=== PATIENT | female | born 1970 | race Caucasian/White ===

== ENCOUNTER 2016-12-13 15:26 | Emergency (ER) | payer MEDICAID ==
[2016-12-13 15:40] VITALS: BP 132/76
--- NOTE | 2016-12-13 15:40 | Emergency Department Report ---
Chief Complaint: Vaginal Bleeding Stated Complaint: 12WKS PREG/BLEEDING Time Seen by Provider: 12/13/16 15:36 - HPI History of Present Illness: PT states she is 12 weeks and she has had vaginal bleeding that started this am. - ROS Review of Systems: - abd pain + vaginal bleeding - Exam Physical Exam: PT looks well, non toxic. abd soft and non tender. MSE screening note: Focused history and physical exam performed. Due to findings the following was ordered: labs, us ED Disposition for MSE Condition: Stable
[2016-12-13 16:23] LABS: Alanine Aminotransferase 24 units/L (7-56); Albumin 4.3 g/dL (3.9-5); Albumin/Globulin Ratio 1.3 %; Alkaline Phosphatase 54 units/L (35-129); Anion Gap 17 mmol/L; BUN/Creatinine Ratio 13.33; Blood Urea Nitrogen 8 mg/dL (7-17); Calcium 9.3 mg/dL (8.4-10.2); Carbon Dioxide 27 mmol/L (22-30); Chloride 101.2 mmol/L (98-107); Glucose 94 mg/dL (65-100); Potassium 4.1 mmol/L (3.6-5.0); Sodium 141 mmol/L (137-145); Total Protein 7.5 g/dL (6.3-8.2)
[2016-12-13 16:26] LABS: Basophils % (Auto) 0.9 % (0.0-1.8); Eosinophils % (Auto) 3.3 % (0.0-4.3); Hematocrit 44.4 % (30.3-42.9); Hemoglobin 14.6 gm/dl (10.1-14.3); Mean Corpuscular HGB Conc 33 % (30-34); Mean Corpuscular Hemoglobin 29 pg (28-32); Mean Corpuscular Volume 86 fl (79-97); Platelet Count 243 K/mm3 (140-440); Red Blood Count 5.14 M/mm3 (3.65-5.03); Red Cell Distribution Width 14.7 % (13.2-15.2); White Blood Count 9.5 K/mm3 (4.5-11.0)
[2016-12-13 16:34] LABS: Bilirubin,Urine NEG (Negative); Blood,Urine LG (Negative); Ketones,Urine NEG (Negative); Leukocyte Esterase,Urine NEG (Negative); Mucus,Urine FEW /HPF; Nitrite,Urine NEG (Negative); Protein,Urine <15 mg/dL mg/dL (Negative); Urobilinogen,Urine < 2.0 mg/dL (<2.0); WBC,Urine < 1.0 /HPF (0.0-6.0)
--- NOTE | 2016-12-13 16:51 | Emergency Department Report ---
<LAUREL VALDIVIA - Last Filed: 12/13/16 16:52> ED Female HPI - General Chief complaint: OB/Uterine Contractions Stated complaint: 12WKS PREG/BLEEDING Time Seen by Provider: 12/13/16 15:36 Source: patient, family, warehouse order filler Mode of arrival: Ambulatory Limitations: Language Barrier - History of Present Illness Initial comments: Spar Machine Operator Helper PT states she is 12 weeks and she has had vaginal bleeding that started this am. She describes small amount of blood without any clots. She reports some pelvic pain comes and goes. It feels like cramping 09/10. She said she went to a clinic where they told her that she was 12 weeks based on her last menstrual cycle was history 09/23/2016. Denies any vaginal discharge or fever or chills. Denies any nausea or vomiting. She is not taking any vitamins at present. Denies Any urinary burning and frequency or urgency. MD Complaint: vaginal bleeding, pelvic pain -: This morning Location: other (pelvic) Radiation: non-radiating Severity: mild Severity scale (0 -10): 3 Quality: cramping Consistency: intermittent Improves with: none Worsens with: none Are you Now?: Yes Last Menstrual Period: 09/23/16 EDC: 06/30/17 Associated Symptoms: vaginal bleeding, abdominal pain. denies: vaginal discharge, nausea/vomiting, fever/chills, headaches, loss of appetite, dysuria, hematuria, rash, seizure, shortness of breath, syncope, weakness - Related Data Sexually active: Yes Previous Rx's Medication Instructions Recorded Last Taken Type Vit No.130/Iron/FA 1 each PO QAM #30 tablet 12/13/16 Unknown Rx [ Tablet] metroNIDAZOLE 0.75% [Vandazole 1 applicator VG QHS #1 tube 12/13/16 Unknown Rx 0.75% VAGINAL] Allergies Allergy/AdvReac Type Severity Reaction Status Date / Time No Known Allergies Allergy Verified 12/13/16 15:41 ED Review of Systems ROS: Stated complaint: 12WKS PREG/BLEEDING Other details as noted in HPI Comment: All other systems reviewed and negative Constitutional: denies: chills, fever Respiratory: no symptoms reported Cardiovascular: denies: chest pain, palpitations, edema, syncope Gastrointestinal: abdominal pain. denies: nausea, vomiting, diarrhea, constipation, hematemesis, melena, hematochezia Genitourinary: abnormal menses. denies: urgency, dysuria, frequency, hematuria , discharge Musculoskeletal: denies: back pain, arthralgia, myalgia Skin: denies: rash Neurological: denies: headache, weakness, numbness, paresthesias, confusion, abnormal gait, vertigo ED Past Medical Hx - Past Medical History Previous Medical History?: No - Surgical History Past Surgical History?: No - Family History Family history: no significant - Social History Smoking Status: Never Smoker Substance Use Type: None - Medications Home Medications: Home Medications Medication Instructions Recorded Confirmed Last Taken Type Vit No.130/Iron/FA 1 each PO QAM #30 tablet 12/13/16 Unknown Rx [ Tablet] metroNIDAZOLE 0.75% [Vandazole 1 applicator VG QHS #1 tube 12/13/16 Unknown Rx 0.75% VAGINAL] ED Physical Exam - General Limitations: Language Barrier General appearance: alert, in no apparent distress - Head Head exam: Present: atraumatic, normocephalic, normal inspection - Eye Eye exam: Present: normal appearance, PERRL, EOMI. Absent: scleral icterus, conjunctival injection, periorbital swelling, periorbital tenderness Pupils: Present: normal accommodation - ENT ENT exam: Present: normal exam, normal orophraynx, mucous membranes moist, TM's normal bilaterally, normal external ear exam - Neck Neck exam: Present: normal inspection, full ROM. Absent: tenderness, meningismus, lymphadenopathy - Respiratory Respiratory exam: Present: normal lung sounds bilaterally. Absent: respiratory distress, wheezes, rales, rhonchi, stridor, chest wall tenderness - Cardiovascular Cardiovascular Exam: Present: regular rate, normal rhythm, normal heart sounds - GI/Abdominal GI/Abdominal exam: Present: soft, normal bowel sounds. Absent: distended, tenderness, guarding, rebound, rigid - External exam: Present: normal external exam. Absent: erythema, swelling, lesions, lacerations, ecchymosis, bleeding Speculum exam: Present: vaginal bleeding. Absent: normal speculum exam, erythema, vaginal discharge, cervical discharge, foreign body, tissue, laceration Bi-manual exam: Present: normal bi-manual exam. Absent: cervical motion tendernes, adnexal tenderness, adnexal mass, uterine tenderness - Extremities Exam Extremities exam: Present: normal inspection, full ROM, normal capillary refill. Absent: tenderness, pedal edema, joint swelling, calf tenderness - Back Exam Back exam: Present: normal inspection, full ROM. Absent: tenderness, CVA tenderness (R), CVA tenderness (L), muscle spasm, paraspinal tenderness, vertebral tenderness, rash noted - Neurological Exam Neurological exam: Present: alert, oriented X3, normal gait, reflexes normal. Absent: motor sensory deficit - Psychiatric Psychiatric exam: Present: normal affect, normal mood - Skin Skin exam: Present: warm, dry, intact, normal color. Absent: rash ED Course Vital Signs 12/13/16 15:36 Temperature 98.4 F Pulse Rate 90 Respiratory 16 Rate Blood Pressure 132/76 O2 Sat by Pulse 99 Oximetry - Reevaluation(s) Reevaluation #1: 12/13/16 19:54 No changes in abdominal exam. Patient remained stable throughout ED course. Tolerated oral liquids. ED Medical Decision Making - Lab Data Result diagrams: 12/13/16 15:50 12/13/16 15:50 Lab Results 12/13/16 12/13/16 12/13/16 Range/Units 15:50 15:50 15:50 WBC 9.5 (4.5-11.0) K/mm3 RBC 5.14 H (3.65-5.03) M/mm3 Hgb 14.6 H (10.1-14.3) gm/dl Hct 44.4 H (30.3-42.9) % MCV 86 (79-97) fl MCH 29 (28-32) pg MCHC 33 (30-34) % RDW 14.7 (13.2-15.2) % Plt Count 243 (140-440) K/mm3 Lymph % (Auto) 25.1 (13.4-35.0) % [place] % (Auto) 6.1 (0.0-7.3) % Eos % (Auto) 3.3 (0.0-4.3) % Baso % (Auto) 0.9 (0.0-1.8) % Lymph # 2.4 (1.2-5.4) K/mm3 [place] # 0.6 (0.0-0.8) K/mm3 Eos # 0.3 (0.0-0.4) K/mm3 Baso # 0.1 (0.0-0.1) K/mm3 Seg Neutrophils % 64.6 (40.0-70.0) % Seg Neutrophils # 6.1 (1.8-7.7) K/mm3 Sodium 141 (137-145) mmol/L Potassium 4.1 (3.6-5.0) mmol/L Chloride 101.2 (98-107) mmol/L Carbon Dioxide 27 (22-30) mmol/L Anion Gap 17 mmol/L BUN 8 (7-17) mg/dL Creatinine 0.6 L (0.7-1.2) mg/dL Estimated GFR > 60 ml/min BUN/Creatinine Ratio 13.33 % Glucose 94 (65-100) mg/dL Calcium 9.3 (8.4-10.2) mg/dL Total Bilirubin 0.50 (0.1-1.2) mg/dL AST 16 (5-40) units/L ALT 24 (7-56) units/L Alkaline Phosphatase 54 (35-129) units/L Total Protein 7.5 (6.3-8.2) g/dL Albumin 4.3 (3.9-5) g/dL Albumin/Globulin Ratio 1.3 % HCG, Quant 1737 H (0-4) mIU/mL Urine Color (Yellow) Urine Turbidity (Clear) Urine pH (5.0-7.0) Ur Specific [place] (1.003-1.030) Urine Protein (Negative) mg/dL Urine Glucose (UA) (Negative) mg/dL Urine Ketones (Negative) mg/dL Urine Blood (Negative) Urine Nitrite (Negative) Urine Bilirubin (Negative) Urine Urobilinogen (<2.0) mg/dL Ur Leukocyte Esterase (Negative) Urine WBC (Auto) (0.0-6.0) /HPF Urine RBC (Auto) (0.0-6.0) /HPF U Epithel Cells (Auto) (0-13.0) /HPF Amorphous Crystals Urine Mucus /HPF Blood Type 12/13/16 12/13/16 Range/Units 15:50 15:56 WBC (4.5-11.0) K/mm3 RBC (3.65-5.03) M/mm3 Hgb (10.1-14.3) gm/dl Hct (30.3-42.9) % MCV (79-97) fl MCH (28-32) pg MCHC (30-34) % RDW (13.2-15.2) % Plt Count (140-440) K/mm3 Lymph % (Auto) (13.4-35.0) % [place] % (Auto) (0.0-7.3) % Eos % (Auto) (0.0-4.3) % Baso % (Auto) (0.0-1.8) % Lymph # (1.2-5.4) K/mm3 [place] # (0.0-0.8) K/mm3 Eos # (0.0-0.4) K/mm3 Baso # (0.0-0.1) K/mm3 Seg Neutrophils % (40.0-70.0) % Seg Neutrophils # (1.8-7.7) K/mm3 Sodium (137-145) mmol/L Potassium (3.6-5.0) mmol/L Chloride (98-107) mmol/L Carbon Dioxide (22-30) mmol/L Anion Gap mmol/L BUN (7-17) mg/dL Creatinine (0.7-1.2) mg/dL Estimated GFR ml/min BUN/Creatinine Ratio % Glucose (65-100) mg/dL Calcium (8.4-10.2) mg/dL Total Bilirubin (0.1-1.2) mg/dL AST (5-40) units/L ALT (7-56) units/L Alkaline Phosphatase (35-129) units/L Total Protein (6.3-8.2) g/dL Albumin (3.9-5) g/dL Albumin/Globulin Ratio % HCG, Quant (0-4) mIU/mL Urine Color Yellow (Yellow) Urine Turbidity Slightly-cloudy (Clear) Urine pH 6.0 (5.0-7.0) Ur Specific [place] 1.014 (1.003-1.030) Urine Protein <15 mg/dl (Negative) mg/dL Urine Glucose (UA) Neg (Negative) mg/dL Urine Ketones Neg (Negative) mg/dL Urine Blood Lg (Negative) Urine Nitrite Neg (Negative) Urine Bilirubin Neg (Negative) Urine Urobilinogen < 2.0 (<2.0) mg/dL Ur Leukocyte Esterase Neg (Negative) Urine WBC (Auto) < 1.0 (0.0-6.0) /HPF Urine RBC (Auto) 79.0 (0.0-6.0) /HPF U Epithel Cells (Auto) 2.0 (0-13.0) /HPF Amorphous Crystals Few Urine Mucus Few /HPF Blood Type A POSITIVE Less than 20% clue cells, no trichomonas and no yeast. Pending CHL - Radiology Data Radiology results: report reviewed Ultrasound less than 14 weeks revealed thickened irregular endometrium with a saclike structure. No pole or yolk sac identified. Continued follow-up recommended. Differential consideration includes blighted Ovum or very early intrauterine gestation. - Medical Decision Making Via Spar Machine Operator Helper ED course: Communicated with patient and family guardian ultrasound results and lab results. I explained to patient that she is having a threatened miscarriage and it is recommended that she return in 48 hours which is 2016 to the emergency room for follow-up blood work and ultrasound. She does understand interpreted and this she will return to the emergency room. As explained to patient that she needs to increase her fluid intake and her CBC with elevated hemoglobin and hematocrit she is dehydrated and patient that she does not drink a lot of fluids. She was able to tolerate fluids in emergency room without any vomiting. Patient discharged home with her family in stable condition with prescription for vitamins. She does not have an SINGLE SPINDLE SCREW MACHINE OPERATOR doctor. Critical care attestation.: If time is entered above; I have spent that time in minutes in the direct care of this critically ill patient, excluding procedure time. ED Disposition Clinical Impression: Threatened miscarriage in early , Pelvic pain during , Vaginal bleeding before 22 weeks gestation, BV (bacterial vaginosis) Disposition: DC-01 TO HOME OR SELFCARE Is pt being admited?: No Does the pt Need Aspirin: No Condition: Stable Instructions: Threatened Miscarriage (ED), Bacterial Vaginosis (ED), Abdominal Pain in (ED) Additional Instructions: Please return to the emergency room on 12/15/2016 for repeat blood work and ultrasound. This is drink plenty of fluids and take vitamin. All to schedule an appointment with SINGLE SPINDLE SCREW MACHINE OPERATOR in discharge instruction paperwork. Prescriptions: metroNIDAZOLE 0.75% [Vandazole 0.75% VAGINAL] 1 applicator VG QHS #1 tube Vit No.130/Iron/FA [ Tablet] 1 each PO QAM #30 tablet Referrals: JELLY SWAN MD [Staff Physician] - 12/14/16 ER, RETURN [Other] - 12/15/16 (Return to the emergency room in 48 hours to have repeat test and ultrasound.) Forms: Accompanied Note, STI Treatment and Prevention, Work/School Release Form (ED) Print Language: SYRIAC <WALTER DOMINGUEZ - Last Filed: 12/15/16 15:09> ED Medical Decision Making - Lab Data Result diagrams: 12/13/16 15:50 12/13/16 15:50
--- NOTE | 2016-12-13 18:18 | Ultrasound Report ---
FINAL REPORT EXAM: US OB TRANSVAGINAL HISTORY: bleeding TECHNIQUE: Ultrasound obstetrical transvaginal PRIORS: None. FINDINGS: The uterus measures 9.5 x 6.0 x 9.0 centimeters. Endometrium is thickened and heterogeneous. There is a saclike structure seen mid to lower uterus measuring 1.7 centimeters in diameter. No pole or yolk sac identified. No free fluid seen Right ovary is 2.1 x 1.4 x 1.1 centimeters. The left ovary is 2.9 x 1.5 x 2.3 centimeters No abnormal mass or cyst identified IMPRESSION: Thickened irregular endometrium with a saclike structure. No pole or yolk sac identified. Continued followup recommended. Differential consideration includes blighted ovum or very early intrauterine gestation.
--- NOTE | 2016-12-13 18:20 | Ultrasound Report ---
FINAL REPORT EXAM: US OB \T\lt; = 14 WEEKS FETUS HISTORY: bleeding TECHNIQUE: Ultrasound obstetrical transabdominal PRIORS: None. FINDINGS: There is central heterogeneity within the uterus with endometrial thickening. Small saclike structure seen without definitive pole or yolk sac. The ovaries demonstrate normal size and echogenicity No free-fluid or free air identified IMPRESSION: Thickened endometrium possible sac identified. No pole or yolk sac seen. Differential consideration includes blighted ovum versus very early gestation.
== END 2016-12-13 20:19 | disposition home or self-care (01) ==
LOC: ED 15:26
DX: O20.0 Threatened abortion (principal); R10.2 Pelvic and perineal pain; N76.0 Acute vaginitis; B96.89 Other specified bacterial agents as the cause of diseases classified elsewhere; Z3A.12 12 weeks gestation of pregnancy
CPT/HCPCS: 36415; 76801; 76817; 80053; 81001; 84702; 85025; 86900; 86901; 87210; 87591

== ENCOUNTER 2016-12-15 15:49 | Emergency (ER) | payer MEDICAID ==
[2016-12-15 16:58] LABS: Basophils % (Auto) 0.9 % (0.0-1.8); Eosinophils % (Auto) 4.6 % (0.0-4.3); Hematocrit 44.5 % (30.3-42.9); Hemoglobin 14.5 gm/dl (10.1-14.3); Mean Corpuscular HGB Conc 33 % (30-34); Mean Corpuscular Hemoglobin 29 pg (28-32); Mean Corpuscular Volume 88 fl (79-97); Platelet Count 245 K/mm3 (140-440); Red Blood Count 5.07 M/mm3 (3.65-5.03); Red Cell Distribution Width 14.7 % (13.2-15.2); White Blood Count 9.8 K/mm3 (4.5-11.0)
[2016-12-15 17:08] LABS: Bilirubin,Urine NEG (Negative); Blood,Urine LG (Negative); Ketones,Urine NEG (Negative); Leukocyte Esterase,Urine TR (Negative); Mucus,Urine 1+ /HPF; Nitrite,Urine NEG (Negative); RBC,Urine > 182.0 /HPF (0.0-6.0); Urobilinogen,Urine < 2.0 mg/dL (<2.0)
--- NOTE | 2016-12-15 18:44 | Ultrasound Report ---
FINAL REPORT EXAM: US OB \T\lt; = 14 WEEKS FETUS HISTORY: vaginal bleedign with high risk TECHNIQUE: Transabdominal and transvaginal sonography of the pelvis. PRIORS: 13 December 2016. FINDINGS: The uterus measures 13.1 x 6.0 x 7.5 cm and appears grossly unremarkable. Endometrial stripe heterogeneously thickened measuring 3.6 cm in AP dimension. Endometrium contains an irregular fluid collection, with mean sac diameter of 17.6 mm. No apparent yolk sac or pole identified. The right ovary measures 2.8 x 1.4 x 1.0 cm and is grossly unremarkable. The left ovary measures 2.4 x 1.4 x 2.7 cm and is grossly unremarkable. No adnexal masses, ring-like structures or significant free peritoneal fluid. IMPRESSION: 1. Nonspecific, intrauterine fluid collection, which should demonstrate yolk sac and pole by size criteria, though none is clearly identified. Possibilities include early failure, or ectopic . Correlation with serial beta-hCG levels and follow-up ultrasound may help in further evaluation.
[2016-12-16 00:03] VITALS: BP 112/72
--- NOTE | 2016-12-16 00:32 | Emergency Department Report ---
HPI - General Chief Complaint: Vaginal Bleeding Time Seen by Provider: 12/16/16 00:09 - [facility] HPI: Room 37 The patient is a 46-year-old female presenting with a chief complaint of vaginal bleeding. The patient states she was told she was 12 weeks of LP. 2 days ago the patient developed vaginal bleeding and came to the ED. The patient's pelvic ultrasound was not definitive she was advised to return to the ED in 48 hours for repeat ultrasound and labs. The patient states yesterday the vaginal bleeding lightened and today he had essentially stopped however while in the waiting room she developed spotting again. Patient denied having abdominal pain at any time. Patient denies passage of tissue. Location: Pelvis Duration: [see above] Quality: Painless Severity: Mild Modifying factors: [see above] Context: [see above] Mode of transportation: Unknown ED Past Medical Hx - Past Medical History Previous Medical History?: Yes - Surgical History Past Surgical History?: No Hx Cholecystectomy: Yes - Family History Family history: no significant - Social History Smoking Status: Never Smoker Substance Use Type: None - Medications Home Medications: Home Medications Medication Instructions Recorded Confirmed Last Taken Type Vit No.130/Iron/FA 1 each PO QAM #30 tablet 12/13/16 Unknown Rx [ Tablet] metroNIDAZOLE 0.75% [Vandazole 1 applicator VG QHS #1 tube 12/13/16 Unknown Rx 0.75% VAGINAL] ED Review of Systems ROS: Stated complaint: 12WKS/TOLD TO COME FOR ULTRSOUND Other details as noted in HPI Comment: All other systems reviewed and negative Constitutional: denies: chills, fever Eyes: denies: eye pain, eye discharge, vision change ENT: denies: ear pain, throat pain Respiratory: denies: cough, shortness of breath, wheezing Cardiovascular: denies: chest pain, palpitations Endocrine: no symptoms reported Gastrointestinal: denies: abdominal pain, nausea, diarrhea Genitourinary: abnormal menses Musculoskeletal: denies: back pain, joint swelling, arthralgia Skin: denies: rash, lesions Neurological: denies: headache, weakness, paresthesias Psychiatric: denies: anxiety, depression Hematological/Lymphatic: denies: easy bleeding, easy bruising Physical Exam - Physical Exam Vital Signs: Vital Signs 12/15/16 12/16/16 16:31 00:00 Temperature 97.8 F 98 F Pulse Rate 84 71 Respiratory 20 18 Rate Blood Pressure 126/78 Blood Pressure 112/72 [Left] O2 Sat by Pulse 98 97 Oximetry Physical Exam: GENERAL: The patient is well-developed well-nourished female lying on stretcher not appearing to be in acute distress. [] HEENT: Normocephalic. Atraumatic. Extraocular motions are intact. Patient has moist mucous membranes. NECK: Supple. Trachea midline CHEST/LUNGS: Clear to auscultation. There is no respiratory distress noted. HEART/CARDIOVASCULAR: Regular. There is no tachycardia. There is no gallop rub or murmur. ABDOMEN: Abdomen is soft, nontender. Patient has normal bowel sounds. There is no abdominal distention. SKIN: There is no rash. There is no edema. There is no diaphoresis. NEURO: The patient is awake, alert, and oriented. The patient is cooperative. The patient has normal speech MUSCULOSKELETAL:There is no evidence of acute injury. ED Course Vital Signs 12/15/16 12/16/16 16:31 00:00 Temperature 97.8 F 98 F Pulse Rate 84 71 Respiratory 20 18 Rate Blood Pressure 126/78 Blood Pressure 112/72 [Left] O2 Sat by Pulse 98 97 Oximetry ED Medical Decision Making - Lab Data Result diagrams: 12/15/16 16:44 Laboratory Tests 12/15/16 12/15/16 12/15/16 16:30 16:43 16:44 WBC 9.8 RBC 5.07 H Hgb 14.5 H Hct 44.5 H MCV 88 MCH 29 MCHC 33 RDW 14.7 Plt Count 245 Lymph % (Auto) 24.0 [place] % (Auto) 7.5 H Eos % (Auto) 4.6 H Baso % (Auto) 0.9 Lymph # 2.3 [place] # 0.7 Eos # 0.5 H Baso # 0.1 Seg Neutrophils % 63.0 Seg Neutrophils # 6.1 HCG, Quant Urine Color Yellow Urine Turbidity Slightly-cloudy Urine pH 5.0 Ur Specific [place] 1.020 Urine Protein 30 mg/dl Urine Glucose (UA) Neg Urine Ketones Neg Urine Blood Lg Urine Nitrite Neg Urine Bilirubin Neg Urine Urobilinogen < 2.0 Ur Leukocyte Esterase Tr Urine WBC (Auto) 1.0 Urine RBC (Auto) > 182.0 U Epithel Cells (Auto) 3.0 Urine Mucus 1+ Blood Type A POSITIVE Antibody Screen TNR [place] Antibody Screen Negative 12/15/16 16:44 WBC RBC Hgb Hct MCV MCH MCHC RDW Plt Count Lymph % (Auto) [place] % (Auto) Eos % (Auto) Baso % (Auto) Lymph # [place] # Eos # Baso # Seg Neutrophils % Seg Neutrophils # HCG, Quant 1229 H Urine Color Urine Turbidity Urine pH Ur Specific [place] Urine Protein Urine Glucose (UA) Urine Ketones Urine Blood Urine Nitrite Urine Bilirubin Urine Urobilinogen Ur Leukocyte Esterase Urine WBC (Auto) Urine RBC (Auto) U Epithel Cells (Auto) Urine Mucus Blood Type Antibody Screen [place] Antibody Screen - Radiology Data Radiology results: report reviewed (pelvic ultrasound), image reviewed (pelvic ultrasound) Pelvic ultrasound (read by radiologist)-nonspecific, intrauterine fluid collection, which should demonstrate yolk sac and pole by size criteria, though none is clearly identified. Possibilities include early failure, or ectopic . Correlation with serial beta hCG levels and follow-up ultrasound may help in further evaluation. - Medical Decision Making I discussed with patient and family at bedside (translation via family as patient speaks limited Portuguese). I verbalized my concern that the patient is having a spontaneous and/or blighted ovum given the downtrending hCG ( 12/13/2016 1737 to 1229 today), ultrasound findings and lack of abdominal pain. I explained however an ectopic in early cannot be 100% excluded and stress the need to follow-up with an SILK WASHING MACHINE OPERATOR. Patient and family verbalized understanding Critical care attestation.: If time is entered above; I have spent that time in minutes in the direct care of this critically ill patient, excluding procedure time. ED Disposition Clinical Impression: Threatened miscarriage in early Disposition: DC-01 TO HOME OR SELFCARE Is pt being admited?: No Does the pt Need Aspirin: No Condition: Stable Instructions: Threatened Miscarriage (ED), Spontaneous Miscarriage (ED) Additional Instructions: Return to the emergency department immediately should you develop worsening symptoms, fever, inability to tolerate food or liquid or any other concerns. Referrals: PRIMARY CARE, [Primary Care Provider] - 3-5 Days JELLY SWAN MD [Staff Physician] - [facility] (Dr. Swan is an SILK WASHING MACHINE OPERATOR. Please follow up with him for further evaluation) Time of Disposition: 00:36
== END 2016-12-16 00:44 | disposition home or self-care (01) ==
LOC: ED 15:49
DX: O20.0 Threatened abortion (principal); Z90.49 Acquired absence of other specified parts of digestive tract; Z3A.12 12 weeks gestation of pregnancy
CPT/HCPCS: 36415; 76801; 76817; 81001; 84702; 85025; 86850; 86900; 86901; 99284

== ENCOUNTER 2021-06-11 09:34 | Emergency (ER) | payer MEDICAID, OTHER ==
[2021-06-11 09:46] VITALS: BP 116/70
--- NOTE | 2021-06-11 10:22 | XRay Report ---
CHEST 2 VIEWS INDICATION / CLINICAL INFORMATION: chest pain. COMPARISON: None available. FINDINGS: SUPPORT DEVICES: None. HEART / MEDIASTINUM: No significant abnormality. LUNGS / PLEURA: No significant pulmonary or pleural abnormality. No pneumothorax. ADDITIONAL FINDINGS: No significant additional findings. IMPRESSION: 1. No acute findings. Signer Name: Mick Crowell DO Signed: 06/11/2021 10:17 AM Workstation Name: [id number]
[2021-06-11 11:59] LABS: Alanine Aminotransferase 56 units/L (7-56); Albumin 4.6 g/dL (3.9-5); Blood Urea Nitrogen 8 mg/dL (7-17); Calcium 9.3 mg/dL (8.4-10.2); Hemolysis Index 10
[2021-06-11 12:05] LABS: BUN/Creatinine Ratio 13
[2021-06-11 12:06] LABS: Bilirubin,Urine NEG (Negative); Blood,Urine MOD (Negative); Color,Urine Amber (Yellow); Mucus,Urine 3+ /HPF; Protein,Urine <15 mg/dL mg/dL (Negative)
[2021-06-11 12:15] LABS: Basophils # (Auto) 0.1 K/mm3 (0.0-0.1); Basophils % (Auto) 0.7 % (0.0-1.8); Eosinophils # (Auto) 0.3 K/mm3 (0.0-0.4); Eosinophils % (Auto) 2.1 % (0.0-4.3); Hematocrit 47.4 % (30.3-42.9); Hemoglobin 15.5 gm/dl (10.1-14.3); Lymphocytes % (Auto) 15.8 % (13.4-35.0); Mean Corpuscular HGB Conc 33 % (30-34); Mean Corpuscular Volume 92 fl (79-97); Monocytes # (Auto) 0.7 K/mm3 (0.0-0.8); Monocytes % (Auto) 5.9 % (0.0-7.3); Platelet Count 356 K/mm3 (140-440); Red Blood Count 5.15 M/mm3 (3.65-5.03); Red Cell Distribution Width 13.5 % (13.2-15.2)
--- NOTE | 2021-06-11 12:28 | Emergency Department Report ---
ED General Adult HPI - General Chief complaint: Chest Pain Stated complaint: CHEST PAIN Time Seen by Provider: 06/11/21 11:06 Source: patient Mode of arrival: Ambulatory Limitations: No Limitations - History of Present Illness Initial comments: Patient is a 50-year-old female presents emergency room with complaints of multiple complaints. She is complaining of left-sided chest pain, right arm tingling, one episode of vomiting, dysuria, lower abdominal discomfort. She states her symptoms have been ongoing for 3 days. She denies any fever, cough, shortness of breath, diaphoresis, leg swelling, calf pain, diarrhea, SI, HI. She states that she has been feeling very anxious lately and is having difficulty sleeping. She states that she has had increased stress in her life. She has a past medical history of depression and is on sertraline. She denies any recent travel or recent surgery or hormone use. She is a non-smoker. She denies any family cardiac history. - Related Data Previous Rx's Medication Instructions Recorded Last Taken Type Vit No.130/Iron/Folic 1 each PO QAM #30 tablet 12/13/16 Unknown Rx [ Tablet] metroNIDAZOLE 0.75% [Vandazole 1 applicator VG QHS #1 tube 12/13/16 Unknown Rx 0.75% VAGINAL] Doxycycline Hyclate [Doxycycline 100 mg PO BID 7 Days #14 tab 06/11/21 Unknown Rx Hyclate TAB] Ondansetron [Zofran Odt] 4 mg PO Q8HR PRN #10 tab.rapdis 06/11/21 Unknown Rx Phenazopyridine [Pyridium] 100 mg PO TID 2 Days #6 tab 06/11/21 Unknown Rx cephALEXin [Keflex] 500 mg PO BID 7 Days #14 cap 06/11/21 Unknown Rx hydrOXYzine HCL [Atarax] 25 mg PO Q6HR PRN #30 tablet 06/11/21 Unknown Rx Allergies Allergy/AdvReac Type Severity Reaction Status Date / Time No Known Allergies Allergy Verified 12/13/16 15:41 ED Review of Systems ROS: Stated complaint: CHEST PAIN Other details as noted in HPI Comment: All other systems reviewed and negative ED Past Medical Hx - Past Medical History Previous Medical History?: No - Surgical History Past Surgical History?: Yes Hx Cholecystectomy: Yes - Social History Smoking Status: Never Smoker Substance Use Type: None - Medications Home Medications: Home Medications Medication Instructions Recorded Confirmed Last Taken Type Vit No.130/Iron/Folic 1 each PO QAM #30 tablet 12/13/16 Unknown Rx [ Tablet] metroNIDAZOLE 0.75% [Vandazole 1 applicator VG QHS #1 tube 12/13/16 Unknown Rx 0.75% VAGINAL] Doxycycline Hyclate [Doxycycline 100 mg PO BID 7 Days #14 tab 06/11/21 Unknown Rx Hyclate TAB] Ondansetron [Zofran Odt] 4 mg PO Q8HR PRN #10 tab.rapdis 06/11/21 Unknown Rx Phenazopyridine [Pyridium] 100 mg PO TID 2 Days #6 tab 06/11/21 Unknown Rx cephALEXin [Keflex] 500 mg PO BID 7 Days #14 cap 06/11/21 Unknown Rx hydrOXYzine HCL [Atarax] 25 mg PO Q6HR PRN #30 tablet 06/11/21 Unknown Rx ED Physical Exam - General Limitations: No Limitations General appearance: alert, in no apparent distress - Head Head exam: Present: atraumatic, normocephalic - Eye Eye exam: Present: normal appearance - ENT ENT exam: Present: mucous membranes moist - Respiratory Respiratory exam: Present: normal lung sounds bilaterally. Absent: respiratory distress, wheezes, rales, rhonchi, stridor, chest wall tenderness, accessory muscle use, decreased breath sounds, prolonged expiratory - Cardiovascular Cardiovascular Exam: Present: regular rate, normal rhythm, normal heart sounds. Absent: systolic murmur, diastolic murmur, rubs, gallop - GI/Abdominal GI/Abdominal exam: Present: soft, normal bowel sounds. Absent: distended, tenderness, guarding, rebound, rigid - Neurological Exam Neurological exam: Present: alert, oriented X3 - Psychiatric Psychiatric exam: Present: normal affect, normal mood - Skin Skin exam: Present: warm, dry, intact ED Course Vital Signs 06/11/21 09:45 Temperature 98.3 F Pulse Rate 75 Respiratory 20 Rate Blood Pressure 116/70 O2 Sat by Pulse 96 Oximetry ED Medical Decision Making - Lab Data Result diagrams: 06/11/21 10:35 06/11/21 10:35 Lab Results 06/11/21 06/11/21 06/11/21 Range/Units 10:35 10:35 10:35 WBC 12.4 H (4.5-11.0) K/mm3 RBC 5.15 H (3.65-5.03) M/mm3 Hgb 15.5 H (10.1-14.3) gm/dl Hct 47.4 H (30.3-42.9) % MCV 92 (79-97) fl MCH 30 (28-32) pg MCHC 33 (30-34) % RDW 13.5 (13.2-15.2) % Plt Count 356 (140-440) K/mm3 Lymph % (Auto) 15.8 (13.4-35.0) % Riley % (Auto) 5.9 (0.0-7.3) % Eos % (Auto) 2.1 (0.0-4.3) % Baso % (Auto) 0.7 (0.0-1.8) % Lymph # (Auto) 2.0 (1.2-5.4) K/mm3 Riley # (Auto) 0.7 (0.0-0.8) K/mm3 Eos # (Auto) 0.3 (0.0-0.4) K/mm3 Baso # (Auto) 0.1 (0.0-0.1) K/mm3 Seg Neutrophils % 75.5 H (40.0-70.0) % Seg Neutrophils # 9.3 H (1.8-7.7) K/mm3 Sodium 139 (137-145) mmol/L Potassium 4.4 (3.6-5.0) mmol/L Chloride 101.4 (98-107) mmol/L Carbon Dioxide 22 (22-30) mmol/L Anion Gap 20 mmol/L BUN 8 (7-17) mg/dL Creatinine 0.6 (0.6-1.2) mg/dL Estimated GFR > 60 ml/min BUN/Creatinine Ratio 13 % Glucose 92 (65-100) mg/dL Calcium 9.3 (8.4-10.2) mg/dL Total Bilirubin 0.70 (0.1-1.2) mg/dL AST 28 (5-40) units/L ALT 56 (7-56) units/L Alkaline Phosphatase 89 (35-129) units/L Troponin T < 0.010 (0.00-0.029) ng/mL Total Protein 7.1 (6.3-8.2) g/dL Albumin 4.6 (3.9-5) g/dL Albumin/Globulin Ratio 1.8 % Lipase 29 (13-60) units/L Urine Color (Yellow) Urine Turbidity (Clear) Urine pH (5.0-7.0) Ur Specific [place] (1.003-1.030) Urine Protein (Negative) mg/dL Urine Glucose (UA) (Negative) mg/dL Urine Ketones (Negative) mg/dL Urine Blood (Negative) Urine Nitrite (Negative) Urine Bilirubin (Negative) Urine Urobilinogen (<2.0) mg/dL Ur Leukocyte Esterase (Negative) Urine WBC (Auto) (0.0-6.0) /HPF Urine RBC (Auto) (0.0-6.0) /HPF U Epithel Cells (Auto) (0-13.0) /HPF Urine Mucus /HPF 06/11/21 Range/Units Unknown WBC (4.5-11.0) K/mm3 RBC (3.65-5.03) M/mm3 Hgb (10.1-14.3) gm/dl Hct (30.3-42.9) % MCV (79-97) fl MCH (28-32) pg MCHC (30-34) % RDW (13.2-15.2) % Plt Count (140-440) K/mm3 Lymph % (Auto) (13.4-35.0) % Riley % (Auto) (0.0-7.3) % Eos % (Auto) (0.0-4.3) % Baso % (Auto) (0.0-1.8) % Lymph # (Auto) (1.2-5.4) K/mm3 Riley # (Auto) (0.0-0.8) K/mm3 Eos # (Auto) (0.0-0.4) K/mm3 Baso # (Auto) (0.0-0.1) K/mm3 Seg Neutrophils % (40.0-70.0) % Seg Neutrophils # (1.8-7.7) K/mm3 Sodium (137-145) mmol/L Potassium (3.6-5.0) mmol/L Chloride (98-107) mmol/L Carbon Dioxide (22-30) mmol/L Anion Gap mmol/L BUN (7-17) mg/dL Creatinine (0.6-1.2) mg/dL Estimated GFR ml/min BUN/Creatinine Ratio % Glucose (65-100) mg/dL Calcium (8.4-10.2) mg/dL Total Bilirubin (0.1-1.2) mg/dL AST (5-40) units/L ALT (7-56) units/L Alkaline Phosphatase (35-129) units/L Troponin T (0.00-0.029) ng/mL Total Protein (6.3-8.2) g/dL Albumin (3.9-5) g/dL Albumin/Globulin Ratio % Lipase (13-60) units/L Urine Color Vicky (Yellow) Urine Turbidity Clear (Clear) Urine pH 6.0 (5.0-7.0) Ur Specific [place] 1.018 (1.003-1.030) Urine Protein <15 mg/dl (Negative) mg/dL Urine Glucose (UA) Neg (Negative) mg/dL Urine Ketones Tr (Negative) mg/dL Urine Blood Mod (Negative) Urine Nitrite Neg (Negative) Urine Bilirubin Neg (Negative) Urine Urobilinogen 2.0 (<2.0) mg/dL Ur Leukocyte Esterase Tr (Negative) Urine WBC (Auto) 15.0 H (0.0-6.0) /HPF Urine RBC (Auto) 11.0 (0.0-6.0) /HPF U Epithel Cells (Auto) 14.0 H (0-13.0) /HPF Urine Mucus 3+ /HPF - EKG Data EKG shows normal: sinus rhythm, axis, intervals, QRS complexes, ST-T waves Rate: normal - Radiology Data Radiology results: report reviewed Ordering Physician: RODERICK GUY Date of Service: 06/11/21 Procedure(s): XR chest routine 2V Accession Number(s): [id number] cc: RODERICK GUY Fluoro Time In Minutes: CHEST 2 VIEWS INDICATION / CLINICAL INFORMATION: chest pain. COMPARISON: None available. FINDINGS: SUPPORT DEVICES: None. HEART / MEDIASTINUM: No significant abnormality. LUNGS / PLEURA: No significant pulmonary or pleural abnormality. No pneumothorax. ADDITIONAL FINDINGS: No significant additional findings. IMPRESSION: 1. No acute findings. Signer Name: Mick Crowell DO Signed: 06/11/2021 10:17 AM Workstation Name: [id number] Transcribed By: NS Dictated By: MICK CROWELL DO Electronically Authenticated By: MICK CROWELL DO Signed Date/Time: 06/11/211016 DD/ 16 TD/TT: - Medical Decision Making Patient is a 50-year-old female presents emergency room with complaints of mult iple complaints. She is complaining of left-sided chest pain, right arm tingling, one episode of vomiting, dysuria, lower abdominal discomfort. She states her symptoms have been ongoing for 3 days. She denies any fever, cough, shortness of breath, diaphoresis, leg swelling, calf pain, diarrhea, SI, HI. She states that she has been feeling very anxious lately and is having difficulty sleeping. She states that she has had increased stress in her life. She has a past medical history of depression and is on sertraline. She denies any recent travel or recent surgery or hormone use. She is a non-smoker. She denies any family cardiac history. Vitals are normal. No abdominal tenderness on exam. EKG is within normal limits. Labs with mild leukocytosis, otherwise stable. UA shows evidence of UTI. Chest x-ray 1. No acute findings. Troponin is negative. Symptoms have been ongoing for 3 days, the up-to-date medical literature states that an EKG and one troponin may rule out active STEMI. Heart score is 2, low risk for cardiac event. PERC criteria negative for PE, PE unlikely discussed all results with patient. Patient given prescription for medications. Discussed the importance of outpatient follow-up. Discussed return precautions. Advised patient Please take medication as prescribed. Increase your fluid intake. Follow-up with your primary care doctor. Follow-up with a systems integration engineer. Return to emergency room for any new or worsening symptoms. Critical care attestation.: If time is entered above; I have spent that time in minutes in the direct care of this critically ill patient, excluding procedure time. ED Disposition Clinical Impression: Tingling of right upper extremity Chest pain Qualifiers: Chest pain type: unspecified Qualified Code(s): R07.9 - Chest pain, unspecified UTI (urinary tract infection) Qualifiers: Urinary tract infection type: acute cystitis Hematuria presence: with hematuria Qualified Code(s): N30.01 - Acute cystitis with hematuria Disposition: HOME / SELF CARE / HOMELESS Is pt being admited?: No Does the pt Need Aspirin: No Condition: Stable Instructions: Nonspecific Chest Pain, Adult, Urinary Tract Infection, Adult, [id number] Additional Instructions: Please take medication as prescribed. Increase your fluid intake. Follow-up with your primary care doctor. Follow-up with a systems integration engineer. Return to emergency room for any new or worsening symptoms. Prescriptions: hydrOXYzine HCL [Atarax] 25 mg PO Q6HR PRN #30 tablet PRN Reason: anxiety Doxycycline Hyclate [Doxycycline Hyclate TAB] 100 mg PO BID 7 Days #14 tab cephALEXin [Keflex] 500 mg PO BID 7 Days #14 cap Phenazopyridine [Pyridium] 100 mg PO TID 2 Days #6 tab Ondansetron [Zofran Odt] 4 mg PO Q8HR PRN #10 tab.rapdis PRN Reason: nausea/vomiting Referrals: PRIMARY CARE, [Primary Care Provider] - 3-5 Days KALINA CARCAMO MD [Staff Physician] - 3-5 Days Forms: Work/School Release Form(ED) Time of Disposition: 12:28 Print Language: [place] HEART Score - HEART Score History: Slightly suspicious EKG: Normal Age: 45-65 Risk factors: 1-2 risk factors Troponin: Troponin T < 0.010 ng/mL (0.00-0.029) 06/11/21 10:35 Troponin: < normal limit HEART Score: 2
[2021-06-11] MEDS ORDERED: LIDOCAINE-MPF (1%) 10 MG/1 ML VIAL 5 ML INFILTRATI ONE (12:37)
--- NOTE | 2021-06-12 12:54 | Electrocardiograph Report ---
[facility] Test Date: 2021-06-11 Test Time: 11:34:51 Pat Name: GENO DE LEON Department: Room: Gender: F Documentation Clerk: RAAD : 1970 Requested By: ED DOC Order Number: [id number] Reading MD: Norma Oates Measurements Intervals [place] Rate: 79 P: 41 VA: 163 QRS: 27 QRSD: 83 T: 52 QT: 389 QTc: 446 Interpretive Statements Sinus rhythm No previous ECG available for comparison Electronically Signed On 06-12-2021 12:53:29 EST by Norma Oates
== END 2021-06-11 13:12 | disposition home or self-care (01) ==
LOC: ED 09:34
DX: N39.0 Urinary tract infection, site not specified (principal); R07.9 Chest pain, unspecified; R20.2 Paresthesia of skin
CPT/HCPCS: 36415; 71046; 80053; 81001; 83690; 84484; 85025; 87086; 93005; 96372; 99283; J0696; J3490